=== PATIENT | female | born 1955 | race Hispanic/Latino ===

== ENCOUNTER 2019-07-28 09:53 | Day surgery (SDC) | payer OTHER ==
[2019-07-27 16:10] LABS: BASOPHILS % (AUTO) 0.9 % (0.0-5.0); EOSINOPHILS % (AUTO) 2.7 % (0.0-8.0); HEMATOCRIT 40.4 % (36-48); LYMPHOCYTES % (AUTO) 41.1 % (21.0-51.0); MEAN CORPUSCULAR HEMOGLOBIN 25.2 pg (27.0-33.0); MEAN CORPUSCULAR HGB CONC 33.1 g/dL (32.0-36.0); MEAN CORPUSCULAR VOLUME 76.1 fL (79-99); MONOCYTES % (AUTO) 6.5 % (3.0-13.0); NEUTROPHILS % (AUTO) 48.8 % (40.0-77.0); NUCLEATED RED BLOOD CELLS 0.2 % (0.0-0.19); PLATELET COUNT (AUTO) 246 K/uL (130-400); RED CELL DISTRIBUTION WIDTH 14.7 % (11.0-15.5); WHITE BLOOD COUNT (AUTO) 6.1 K/uL (4.8-10.8)
[2019-07-27 16:18] LABS: CREATININE 0.7 mg/dL (0.5-1.5); POTASSIUM 3.7 mmol/L (3.5-5.1)
[2019-07-27 17:10] VITALS: BP 139/80
--- NOTE | 2019-07-27 17:59 | NUR ---
REPORTED ABNORMAL LABS TO DR. LÓPEZ, NO NEW ORDERS OK TO PROCEED.
[~2019-07-28] VITALS: Ht 160 cm; Wt 82.1 kg
[2019-07-28] VITALS (14 sets, daily range): BP systolic 115–135; BP diastolic 60–76
[~2019-07-28 09:53] MED LIST: AMLO10TA7 PO; ATOR20TA65 PO
[2019-07-28] MEDS ORDERED: CEFAZOLIN SODIUM 1 GM VIAL ONE (10:47)
[2019-07-28] MEDS ORDERED: LACTATED RINGERS 1000ML 1,000 ML IV ONE (10:47)
[2019-07-28] MEDS: CEFAZOLIN SODIUM 1 GM VIAL IVP ONE ×2 (11:00→13:31)
[2019-07-28] MEDS ORDERED: PROPOFOL 10 MG/ML 20ML VIAL IV ONE (12:42)
[2019-07-28] MEDS ORDERED: ROCURONIUM 10MG/1ML SYR 10 MG/ML ML ONE (12:42)
[2019-07-28] MEDS ORDERED: MIDAZOLAM HCL 1 MG/ML 2ML VIAL ONE (12:42)
[2019-07-28] MEDS ORDERED: FENTANYL CITRATE PF 50 MCG/1 ML 5ML AMP IV ONE (12:42)
[2019-07-28] MEDS ORDERED: EPHEDRINE SULFATE 50 MG/ML AMPULE ONE ×2 (12:53→13:34)
[2019-07-28] MEDS ORDERED: ONDANSETRON HCL 4 MG/2 ML VIAL ONE ×2 (13:33→17:17)
[2019-07-28] MEDS ORDERED: NEOSTIGMINE 5MG/5ML SYR IV ONE (13:33)
[2019-07-28] MEDS ORDERED: DEXAMETHASONE SOD PHOSPHATE 10MG/ML 1ML VIAL ONE (13:33)
[2019-07-28] MEDS ORDERED: GLYCOPYRROLATE 1 MG/5 ML SYRINGE ONE (13:33)
[2019-07-28] MEDS ORDERED: PHENYLEPHRINE HCL 10 MG/ML 1ML VIAL IV ONE (13:53)
[2019-07-28] MEDS ORDERED: LIDOCAINE HCL MPF 1% 5ML VIAL ONE (15:54)
[2019-07-28] MEDS ORDERED: MELO-106 PO (16:19)
[2019-07-28] MEDS ORDERED: CEPH500B PO (16:19)
[2019-07-28] MEDS ORDERED: HYDR-4457 PO (16:19)
[2019-07-28] MEDS ORDERED: HYDROCODONE/ACETAMINOPHEN 10/325 MG TAB ONE (18:01)
[2019-07-28] MEDS ORDERED: KETOROLAC TROMETHAMINE 60 MG/2 ML VIAL ONE (18:01)
[2019-07-28] MEDS ORDERED: HYDROCODONE/ACETAMINOPHEN 5/325 MG TAB ONE (18:03)
--- NOTE | 2019-07-28 19:15 | NUR ---
1850 PT STABLE, NO DISTRESS. C/O PAIN S/P TO RT ARM OF 5 , IMPROVED WITH MEDICATION AND ICE PACKS PER PT. PT NAUSEA RESOLVED. PT ABLE TO SIT AT BEDSIDE AND CHANGE INTO CLOTHING WITH ASSISTANCE. PT VITALS STABLE. AAOX3 , DRESSING TO RT ARM D/I NO BLEEDING OR HEMATOMA. POST CARE INSTRUCTIONS AND PRESCRIPTIONS GIVEN TO PATRICIA , PARTNER. BOTH VERBALIZED UNDERSTANDING OF INSTRUCTIONS. PT TAKEN OUT IN WHEELCHAIR, DRIVEN HOME BY PARTNER.
== END 2019-07-28 18:50 | disposition home or self-care (01) ==
LOC: DAH 09:53
PROVIDERS: ATTEND Orthopaedic Surgery
DX: M75.101 Unspecified rotator cuff tear or rupture of right shoulder, not specified as traumatic (principal); M25.511 Pain in right shoulder; I10 Essential (primary) hypertension; K21.9 Gastro-esophageal reflux disease without esophagitis; Z79.899 Other long term (current) drug therapy; Z90.49 Acquired absence of other specified parts of digestive tract; Z90.710 Acquired absence of both cervix and uterus; Z98.890 Other specified postprocedural states; Z72.89 Other problems related to lifestyle; Z82.49 Family history of ischemic heart disease and other diseases of the circulatory system
CPT/HCPCS: 29824; 29826; 29827; 36415; 64415; 76942; 80048; 85025; 93005; A4215; A4221; A4222; A4223; A4565; A4649 ×7; A4663; A4930; A6204; C1713 ×3; G0168; J0690; J1100; J1885; J2250; J2370; J2405 ×2; J2704; J2710; J3010; J3490 ×4; J7030; J7120

== ENCOUNTER → 2019-11-11 | Outpatient (CLI) | payer OTHER, MEDICARE ==
[~2019-11-11] MED LIST changes: +CEPH500B PO; +HYDR-4457 PO; +MELO-106 PO
== END | disposition home or self-care (01) ==
LOC: RAH 10:00
PROVIDERS: ATTEND Orthopaedic Surgery
DX: S46.011A Strain of muscle(s) and tendon(s) of the rotator cuff of right shoulder, initial encounter (principal); M19.011 Primary osteoarthritis, right shoulder; X58.XXXA Exposure to other specified factors, initial encounter; Y93.89 Activity, other specified; Y92.89 Other specified places as the place of occurrence of the external cause; Y99.8 Other external cause status; Z98.890 Other specified postprocedural states
CPT/HCPCS: 73221

== ENCOUNTER 2021-03-27 09:36 | Emergency (ER) | payer OTHER, MEDICARE ==
[~2021-03-27] VITALS: Ht 160 cm; Wt 81.6 kg
[~2021-03-27 09:36] MED LIST changes: +AMLO-258 PO; -AMLO10TA7 PO
[2021-03-27 09:48] VITALS: BP 146/79
[2021-03-27 09:49] VITALS: BP 188/74
[2021-03-27] MEDS ORDERED: ASPIRIN 325MG TAB PO ONE (10:30)
[2021-03-27] MEDS ORDERED: NITROGLYCERIN 1GM OINT 1 INCH/1GM TD ONE ×2 (10:30→10:32)
[2021-03-27] MEDS ORDERED: ASPIRIN 325MG TAB ONE (10:31)
[2021-03-27 10:53] VITALS: BP 124/71
[2021-03-27 10:53] LABS: BASOPHILS % (AUTO) 0.2 % (0.0-5.0); EOSINOPHILS % (AUTO) 2.8 % (0.0-8.0); HEMATOCRIT 41.4 % (36-48); MEAN CORPUSCULAR HEMOGLOBIN 24.5 pg (27.0-33.0); MEAN CORPUSCULAR HGB CONC 32.6 g/dL (32.0-36.0); MEAN CORPUSCULAR VOLUME 75.1 fL (79-99); MONOCYTES % (AUTO) 8.6 % (3.0-13.0); NEUTROPHILS % (AUTO) 45.2 % (40.0-77.0); PLATELET COUNT (AUTO) 252 K/uL (130-400); RED BLOOD CELL COUNT(AUTO) 5.51 MIL/uL (4.00-5.50); RED CELL DISTRIBUTION WIDTH 14.8 % (11.0-15.5); WHITE BLOOD COUNT (AUTO) 4.6 K/uL (4.8-10.8)
[2021-03-27 11:00] LABS: CREATININE 0.8 mg/dL (0.5-1.5); POTASSIUM 3.1 mmol/L (3.5-5.1)
[2021-03-27 11:08] LABS: BILIRUBIN,TOTAL 1.3 mg/dL (0.2-1.0); TOTAL PROTEIN, SERUM 7.9 g/dL (6.0-8.3)
[2021-03-27 12:00] VITALS: BP 120/67
[2021-03-27 13:27] VITALS: BP 110/74
[2021-03-27 13:40] LABS: APPEARANCE,URINE Clear (CLEAR); BILIRUBIN,URINE Negative (NEGATIVE); COLOR,URINE Yellow (YELLOW); GLUCOSE, URINE (UA) Negative (NEGATIVE); KETONES,URINE Negative (NEGATIVE); LEUKOCYTE ESTERASE ,URINE Negative (NEGATIVE); NITRATE,URINE Negative (NEGATIVE); OCCULT BLOOD,URINE Negative (NEGATIVE); PH,URINE 5.5 (5.0-8.0); PROTEIN,URINE Negative (NEGATIVE); UROBILINOGEN,URINE 0.2 mg/dL (0.2-1.0)
[2021-03-27 14:42] VITALS: BP 117/71
== END 2021-03-27 15:46 | disposition home or self-care (01) ==
LOC: EDH 09:36
DX: R07.89 Other chest pain (principal); I10 Essential (primary) hypertension; E78.00 Pure hypercholesterolemia, unspecified; Z79.1 Long term (current) use of non-steroidal anti-inflammatories (NSAID); Z79.899 Other long term (current) drug therapy; Z79.82 Long term (current) use of aspirin; Z90.49 Acquired absence of other specified parts of digestive tract
CPT/HCPCS: 36415; 71045; 80053; 81003; 84484; 85025; 93005